=== PATIENT | male | born 1995 | race Native Hawaiian/Other Pacific Islander ===

== ENCOUNTER 2017-09-24 19:03 | Emergency (ER) | payer OTHER ==
[2017-09-24] MEDS ORDERED: MOTRIN 400 MG PO ONE (19:18)
[2017-09-24] MEDS ORDERED: Rocephin 1000 MG INJ IM ONE (19:18)
[2017-09-24 19:19] VITALS: BP 129/67; PULSE 96; O2SAT 96
[2017-09-24] MEDS ORDERED: MOTRIN 400 MG ONE (19:24)
[2017-09-24] MEDS ORDERED: Rocephin 1000 MG INJ ONE (19:24)
--- NOTE | 2017-09-24 19:24 | ERPHSYRPT ---
- History of Present Illness Time Seen by Provider: 09/24/17 19:14 Source: patient, family (MOM) Exam Limitations: no limitations Patient Subjective Stated Complaint: sore throat for 3 days Triage Nursing Assessment: red throat with fever for 3 days. denies cough or nasal drainage/congestion. pain with swallowing Physician History: FOR THE PAST 3 DAYS PT HAS HAD A SORE THROAT, SUBJECTIVE FEVER, HEADACHE AND GENERALIZED ACHES; TODAY DIARRHEA. Allergies/Adverse Reactions: No Known Drug Allergies Allergy (Unverified 09/24/17 19:18) Hx Tetanus, Diphtheria Vaccination/Date Given: Yes Hx Influenza Vaccination/Date Given: No Hx Pneumococcal Vaccination/Date Given: No Immunizations Up to Date: Yes - Review of Systems Constitutional: Fever Ears, Nose, & Throat: Throat Pain Abdominal/Gastrointestinal: Diarrhea Musculoskeletal: Myalgias Neurological: Headache All Other Systems: Reviewed and Negative - Past Medical History Pertinent Past Medical History: No - Past Surgical History Past Surgical History: No - Social History Smoking Status: Current every day smoker Exposure to second hand smoke: Yes Drug Use: none Patient Lives Alone: No - Nursing Vital Signs Nursing Vital Signs: Initial Vital Signs Temperature 101 F 09/24/17 19:11 Pulse Rate 96 H 09/24/17 19:11 Respiratory Rate 18 09/24/17 19:11 Blood Pressure 129/67 09/24/17 19:11 O2 Sat by Pulse Oximetry 96 09/24/17 19:11 Pain Scale Pain Intensity 7 - Physical Exam General Appearance: alert Eye Exam: PERRL/EOMI Ears, Nose, Throat Exam: TMs normal, moist mucous membranes, pharyngeal erythema , other (TONSILLAR ERYTHEMA; NASAL TURBINATES ERYTHEMATOUS AND EDEMATOUS.) Neck Exam: normal inspection Respiratory Exam: lungs clear Cardiovascular Exam: normal heart sounds Gastrointestinal/Abdomen Exam: soft, normal bowel sounds Back Exam: normal range of motion Extremity Exam: normal inspection, No pedal edema Neurologic Exam: alert, cooperative Skin Exam: warm, dry SpO2 Interpretation: normal SpO2: 96 Oxygen Delivery: Room Air - Course Nursing assessment & vital signs reviewed: Yes - Departure Time of Disposition: 19:24 Departure Disposition: Home Clinical Impression: TONSILLOPHARYNGITIS, SINUSITIS Condition: Stable Critical Care Time: No Instructions: Pharyngitis/Tonsillopharyngitis -- Adult Additional Instructions: FOLLOW UP WITH PRIVATE DOCTOR TOMORROW. Prescriptions: Naproxen [Naprosyn] 500 mg PO [id number] PRN #20 tablet PRN Reason: Pain Azithromycin 250 mg [Zithromax 250 MG TABLET] 250 mg PO ZPACK #6 tablet
[2017-09-24] MEDS ORDERED: XYLOCAINE 1% HCL 20 ML MDV ONE (19:25)
== END 2017-09-24 19:52 | disposition home or self-care (01) ==
LOC: ED 19:03
DX: B00.2 Herpesviral gingivostomatitis and pharyngotonsillitis (principal); J32.9 Chronic sinusitis, unspecified
CPT/HCPCS: 96372; 99284; J0696; A9270-GY